=== PATIENT | male | born 1990 | race African-American/Black ===

== ENCOUNTER 2018-04-03 18:08 | Emergency (ER) | payer OTHER, BC ==
[2018-04-03 18:21] VITALS: BP 142/77
[2018-04-03] MEDS ORDERED: DEXAMETHASONE 4 MG TABLET PO ONE (19:18)
[2018-04-03] MEDS ORDERED: METHOCARBAMOL 500 MG TABLET PO ONE (19:18)
[2018-04-03] MEDS ORDERED: KETOROLAC TROMETHAMINE 60 MG/2 ML SDV IM ONE (19:18)
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
== END 2018-04-03 19:45 | disposition home or self-care (01) ==
LOC: ER 18:08
DX: S16.1XXA Strain of muscle, fascia and tendon at neck level, initial encounter (principal); V43.52XA Car driver injured in collision with other type car in traffic accident, initial encounter; G89.29 Other chronic pain; M54.5 Low back pain
CPT/HCPCS: 99283; 96372; J1885